=== PATIENT | female | born 1975 | race Caucasian/White ===

== ENCOUNTER 2021-05-06 18:23 | Emergency (ER) | payer MEDICAID ==
[~2021-05-06] VITALS: Ht 162.6 cm; Wt 60.0 kg
[2021-05-06 18:33] VITALS: BP 125/73
[2021-05-06] MEDS ORDERED: TETRACAINE 0.5% OPHTH DROPS 4ML RIGHTEYE ONE (19:00)
[2021-05-06] MEDS ORDERED: ACETAMINOPHEN 325MG TABLET PO ONE (19:00)
[2021-05-06] MEDS ORDERED: FLUORESCEIN SODIUM 1MG/STRIP RIGHTEYE ONE (19:00)
[2021-05-06] MEDS ORDERED: SULF5DRO RIGHTEYE (19:14)
== END 2021-05-06 19:44 | disposition home or self-care (01) ==
LOC: ER 18:40
DX: H10.021 Other mucopurulent conjunctivitis, right eye (principal)
CPT/HCPCS: 99283; A4217